=== PATIENT | male | born 1980 | race Two or more races ===

== ENCOUNTER 2022-03-30 17:05 | Emergency (ER) | payer OTHER ==
[~2022-03-30] VITALS: Ht 188 cm; Wt 99.8 kg
[~2022-03-30 17:05] MED LIST: GILTUSS TR TAB1 EACH PO
== END 2022-03-30 20:20 | disposition home or self-care (01) ==
LOC: ER 17:05
DX: R10.11 Right upper quadrant pain (principal); Z88.0 Allergy status to penicillin